=== PATIENT | male | born 1960 | race Caucasian/White ===

== ENCOUNTER 2020-01-21 08:32 | Inpatient (IN) | payer OTHER ==
--- NOTE | 2020-01-14 12:17 | RAD REPORT ---
EXAM DESCRIPTION: Fadumo Caceres (2 Views)01/14/2020 12:07 pm CLINICAL HISTORY: Preop for knee surgery COMPARISON: 2010 FINDINGS: The lungs appear clear of acute infiltrate. The heart is normal size IMPRESSION: No acute abnormalities displayed
[2020-01-14 12:58] LABS: Absolute Lymphocytes (CBC) 1.3 K/uL (0.7-4.9); Basophils % 0.6 % (0-1.3); Hematocrit 44.1 % (39.6-49.0); RBC Red Blood Cell Count 5.12 M/uL (4.33-5.43)
[2020-01-14 12:59] LABS: Protime INR 1.01
[2020-01-14 13:07] LABS: Potassium 4.1 mmol/L (3.5-5.1)
--- NOTE | 2020-01-14 16:28 | EKG ---
Test Date: 2020-01-14 Test Time: 10:44:21 Safety Sitter: NELLIE MEASUREMENT RESULTS: Intervals: Rate: 58 LA: 190 QRSD: 100 QT: 422 QTc: 414 [place]: P: 41 LA: 190 QRS: 5 T: 25 INTERPRETIVE STATEMENTS: Sinus bradycardia Otherwise normal ECG Compared to ECG 03/20/2011 12:53:34 Sinus rhythm no longer present Electronically Signed On 01-14-20 16:27:25 CDT by Ketan Melendez
[~2020-01-21 08:32] MED LIST: TRANEXAMIC ACID 1,000 MG in NA CHLORIDE 0.9% 50 ML IV SCH
[2020-01-21] MEDS ORDERED: CEFAZOLIN/SWI 2gm 2 GM/20 ML SYR ONE (08:56)
[2020-01-21] MEDS ORDERED: Ringers Lactate 1,000 ML IV ONE ×2 (08:56→12:06)
--- OUTSIDE RECORDS SUMMARY | 2020-01-21 09:24 | XMS REPORT ---
:1960 Author Organization eClinicalWorks Care Team Providers Name Role Phone Colt Enamorado Provider Role Unavailable Allergies No Known Allergies Problems Problem Type Condition Code Onset Dates Condition Statu s Problem Diverticulosis of large intestine K57.30 Active without perforation or abscess Problem Nonalcoholic fatty liver disease K76.0 Active Problem BPH without urinary obstruction N40.0 Active Problem Osteoarthritis of right knee, M17.11 Active unspecified osteoarthritis type Problem Adult BMI 38.0-38.9 kg/sq m Z68.38 Active Problem Primary osteoarthritis of right knee M17.11 Active Problem Hypersomnia G47.10 Active Problem Prediabetes R73.03 Active Problem Dependence on other enabling Z99.89 Active machines and devices Problem Obstructive sleep apnea (adult) G47.33 Active (pediatric) Problem Body mass index (BMI) of 36.0-36.9 Z68.36 Active in adult Problem Obesity, unspecified E66.9 Active Problem Benign essential hypertension I10 Active Problem Subclinical hypothyroidism E03.9 A ctive Problem Chronic back pain M54.9 Active Problem Gastroesophageal reflux disease K21.9 Active without esophagitis Problem Obstructive sleep apnea G47.33 Acti ve Medications Medication Code Code Instructions Start End Status Dosage System Date Date [facility] MG Orally Active 1 caps ule Once a day Aspirin 81 [facility] 48558660414 81 MG Orally Active 1 ta blet Once a day Losartan [facility] 43103676219 100 MG Orally Active 1 tab let Potassium Once a day Flomax [facility] 27880571060 0.4 Orally Once Active 1 ca psule a day Flomax [facility] 21751934887 0.4 MG Active TAKE ONE CAPSULE BY MOUTH DAILY Losartan [facility] 89259858753 50 MG Inactive TAKE TWO Potassium TABLETS BY MOUTH DAILY Results No Known Results Summary Purpose eClinicalWorks Submission
--- OUTSIDE RECORDS SUMMARY | 2020-01-21 09:24 | XMS REPORT ---
:1960 Author Organization eClinicalWorks Care Team Providers Name Role Phone [place] Michael Provider Role Unavailable Allergies No Known Allergies [...] Obstructive sleep apnea G47.33 Acti ve Medications No Known Medications Results No Known Results Summary Purpose Embedded ChatinicalWorks Submission
--- OUTSIDE RECORDS SUMMARY | 2020-01-21 09:24 | XMS REPORT ---
[...] Medications Results No Known Results Summary Purpose [employer]ylan [employer]Works Submission
--- OUTSIDE RECORDS SUMMARY | 2020-01-21 09:24 | XMS REPORT | Continuity of Care Document ---
:1960 Author Organization [facility] Address [address] [place] [id number] Care Team Providers Name Role Phone Unavailable Unavailable Unavailable Problems Condition Condition Condition Status Onset Resolution Last Treating Co mments Source Name Details Category Date Date Treatment Clinician Date Gastroesop Gastroesop Problem Active [facility] - reflux reflux Memoria disease disease l without without Outpati esophagiti esophagiti en t s s Clinics Benign Benign Problem Active [facility] essential essential Luke s - hypertensi hypertensi Me moria on on l [facility] Obesity, Obesity, Problem Active [facility] unspecifie unspecifie Rosa kes - d d Memoria l [facility] Prediabete Prediabete Problem Active [facility] - Memoria l [facility] Nonalcohol Nonalcohol Problem Active [facility] ic fatty ic fatty [facility] - liver liver Memoria disease disease l [facility]ics Hypersomni Hypersomni Problem Active [facility] a a [facility] - Memoria l [facility] Obstructiv Obstructiv Problem Active [facility] e sleep e sleep [facility] - apnea apnea Memoria l [facility]ics Chronic Chronic Problem Active [facility] back pain back pain Luke s - Memoria l [facility] BPH BPH Problem Active [facility] without without [facility] - urinary urinary Memoria obstructio obstructio l n n [facility] Diverticul Diverticul Problem Active [facility] osis of osis of [facility] - large large Memoria intestine intestine l without without Outpati perforatio perforatio en t n or n or Clinics abscess abscess Subclinica Subclinica Problem Active [facility] l l [facility] - hypothyroi hypothyroi Me moria dism dism l [facility] Clinics Body mass Body mass Problem Active [facility] index index [facility] - (BMI) of (BMI) of Memori a 36.0-36.9 36.0-36.9 l in adult in adult Outpat i ent Clinics Dependence Dependence Problem Active [facility] on other on other [facility] - enabling enabling Memori a machines machines l and and [facility] devices devices ent Clinics Adult BMI Adult BMI Problem Active [facility] 38.0-38.9 38.0-38.9 Luke s - kg/sq m kg/sq m Memoria l [facility] ent Clinics Primary Primary Problem Active [facility] osteoarthr osteoarthr Rosa kes - itis of itis of [facility] right knee right knee l [facility] Clinics Allergies, Adverse Reactions, Alerts This patient has no known allergies or adverse reactions. Medications Ordered Filled Start Stop Current Ordering Indication Dosage Frequency Signature Comments Components Source Medication Medication Date Date Medication? Clinician (SIG) Name Name Alcon Rondon Yes Michael [address] [facility] 6[facility] [place] as needed [facility] - 00:00: Memoria 00 [facility] ent Clinics Xarelto Xarelto Yes Michael [address] [facility] [place] [facility] - 00:00: Memoria 00 [facility] ent Clinics Prilosec Prilosec Yes Michael [address] [facility] [place] [facility] Losartan Losartan Yes Michael [address] Potassium Potassium [place] kes - [facility] ent [facility] Aspirin 81 Aspirin 81 Yes Michael [address] [facility] [place] [facility] - Memoria [facility] ent [facility] Flomax Flomax Yes Michael [address] [place] kes - [facility] ent Clinics Procedures This patient has no known procedures. Encounters Start End Encounter Admission Attending Care Care Encounter Source Date/Time Date/Time Type Type Clinicians Facility Department ID 2020-01-19 2020-01-19 Outpatient Steve Maldonado [id number] [facility] 14:02:00 14:02:00 t Bone Bone and [facility] - and Joint [facility] 2020-01-12 2020-01-12 Outpatient Steve Maldonado [id number] [address] 18:43:00 18:43:00 t [facility] and [facility] - and [facility] a [facility] 2020-01-08 2020-01-08 [facility] [id number] 09:00:00 09:00:00 t [facility] and [facility] - and [facility] 2019-12-31 2019-12-31 [facility] [id number] 10:34:00 10:34:00 t [facility] - and [facility] 2019-11-25 2019-11-25 [facility] [id number] 11:31:00 11:31:00 t Birthday Gorilla [facility] 2019-11-10 2019-11-10 [facility] [id number] 15:24:00 15:24:00 t [facility] and [facility] - and [facility] 2019-10-08 2019-10-08 [facility] [id number] 13:46:00 13:46:00 t [facility] - and [facility] 2019-10-03 2019-10-03 [facility] [id number] 11:07:00 11:07:00 t [facility] and [facility] - and [facility] 2019-10-02 2019-10-02 [facility] [id number] 15:14:00 15:14:00 t [facility] and [facility] - and [facility] 2019-10-02 2019-10-02 [facility] [id number] 08:17:00 08:17:00 [facility] 2019-10-01 2019-10-01 [facility] [id number] 06:22:00 06:22:00 t [facility] 2019-09-30 2019-09-30 [facility] [id number] 15:00:00 15:00:00 t Birthday Gorilla [facility] 2019-09-17 2019-09-17 [facility] [id number] 15:35:00 15:35:00 t [facility] and [facility] - and [facility] Clinics 2019-09-02 2019-09-02 [facility] [id number] 15:00:00 15:00:00 t [facility] - [facility] ent Clinics 2019-08-14 2019-08-14 [facility] [id number] 16:00:00 16:00:00 t Anderson Andel [facility] 2019-06-30 2019-06-30 [facility] [id number] 16:30:00 16:30:00 t Anderson Andel [facility] 2019-02-24 2019-02-24 [facility] [id number] 11:45:00 11:45:00 t Anderson Andel [facility] 2019-02-06 2019-02-06 [facility] [id number] 09:06:00 09:06:[address] [place] [employer] [address] [facility] ent Clinics 2018-12-11 2018-12-11 [facility] [id number] 14:30:00 14:30:00 t Bone [facility] and [facility] - and [facility] Clin[facility] 2018-12-05 2018-12-05 [facility] [id number] 15:30:00 15:30:00 t [facility] - [facility] ent Clinics 2018-11-28 2018-11-28 [facility] [id number] 15:00:00 15:00:00 t [facility] - [facility] ent Clinics 2018-10-28 2018-10-28 [facility] [id number] 11:00:00 11:00:00 t Bone [facility] and [facility] - [facility] ent Clinics 2018-10-23 2018-10-23 [facility] [id number] 14:04:00 14:04:00 t Anderson Bluen[facility] Medicine Outpati ent Clinics 2018-10-08 2018-10-08 [facility] [id number] [facility] 15:45:00 15:45:00 t Anderson [facility] Medicine Outpati ent Clinics 2018-09-30 2018-09-30 [facility] [id number] 10:00:00 10:00:00 t Anderson [facility] Medicine Outpati ent Clinics 2018-03-08 2018-03-08 [facility] [id number] 09:21:00 09:21:00 t Anderson Bluen[facility] Medicine Outpati ent Clinics 2018-02-25 2018-02-25 [facility] [id number] 16:00:00 16:00:00 t IdenIve s - [facility] Medicine Outpati ent Clinics 2018-01-16 2018-01-16 [facility] [id number] 16:00:00 16:00:00 t IdenIve s [employer] [facility] Medicine Outpati ent Clinics Results This patient has no known results.
--- OUTSIDE RECORDS SUMMARY | 2020-01-21 09:25 | XMS REPORT ---
:1960 [facility] Team Providers Name Role Phone [place] Provider Role Unavailable Allergies, Adverse Reactions, Alerts Substance Reaction Event Type N.K.D.A. 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 Active machines and devices Problem Obstructive sleep apnea (adult) G47.33 Active (pediatric) Problem Body mass index (BMI) of 36.0-36.9 Z68.36 Active in adult Assessment Acute pain of right knee M25.561 Act tuan Assessment Primary osteoarthritis of right M17.11 Active knee Problem Obesity, unspecified E66.9 Active Problem Benign essential hypertension I10 Active Problem Subclinical hypothyroidism E03.9 A ctive Problem Chronic back pain M54.9 Active Problem Gastroesophageal reflux disease K21.9 Active without esophagitis Problem Obstructive sleep apnea G47.33 Acti ve Medications Medication Code Code Instructions Start End Status Dosage System Date Date Aspirin 81 [facility] 78894041546 81 MG Orally Active 1 ta blet Once a day Losartan [facility] 88704556682 100 MG Orally Active 1 tab let Potassium Once a day [place] [facility] 81775365498 7.5-325 MG January 13, Active 1 tablet Orally every 6 2019 as needed hrs Xarelto [facility] 56484825606 10 MG Orally January 13, Active 1 tabl et Once a day 2019 Prilosec [facility] 31500001409 20 MG Orally Active 1 caps ule Once a day Flomax [facility] 62686022752 0.4 Orally Once Active 1 ca psule a day Results No Known Results Summary Purpose eClinicalWorks Submission
--- OUTSIDE RECORDS SUMMARY | 2020-01-21 09:25 | XMS REPORT ---
[...] Medications Results No Known Results Summary Purpose mLEDinicalWorks Submission
--- OUTSIDE RECORDS SUMMARY | 2020-01-21 09:25 | XMS REPORT ---
[...] Medications Results No Known Results Summary Purpose [email or web address]com[employer]Works Submission
[2020-01-21] MEDS ORDERED: MIDAZOLAM HCL 2 MG/2 ML INJ ONE (09:48)
[2020-01-21] MEDS ORDERED: FENTANYL CITR 250 MCG/5 ML ONE (09:48)
[2020-01-21] MEDS ORDERED: BUPIVACA 0.5%/EPI 0.0005%/PF 30 ML VIAL ONE (10:09)
[2020-01-21] MEDS ORDERED: dexAMETHasone 10 MG/ML VIAL ONE ×2 (10:13→11:43)
[2020-01-21] MEDS ORDERED: BUPIVACAINE 0.25% PF 10 ML VIAL ONE (10:14)
[2020-01-21] MEDS ORDERED: propofoL 200 MG/20 ML VIAL IV ONE (10:45)
[2020-01-21] MEDS ORDERED: LIDOCAINE 1% MPF 5 ML VIAL ONE (10:46)
[2020-01-21] MEDS ORDERED: HYDROMORPHONE HCL 1 MG/ML INJ ONE (10:46)
[2020-01-21] MEDS ORDERED: ROCURONIUM 50 MG/5 ML VIAL IV ONE (10:47)
[2020-01-21] MEDS ORDERED: KETAMINE HCL 500 MG/5 ML VIAL ONE (11:06)
[2020-01-21] MEDS ORDERED: EPHEDRINE SULF 50 MG/ML VIAL ONE (11:14)
[2020-01-21] MEDS ORDERED: KETOROLAC 30 MG/ML INJ ONE (11:43)
[2020-01-21] MEDS ORDERED: ONDANSETRON 4 MG/2 ML VIAL ONE (11:48)
[2020-01-21] MEDS ORDERED: DOCUSATE NA 100 MG CAP PO PRN (13:33)
[2020-01-21] MEDS ORDERED: ONDANSETRON 4 MG/2 ML VIAL IV PRN (13:33)
[2020-01-21] MEDS ORDERED: MORPHINE 2 MG/ML SYR IV PRN (13:33)
--- NOTE | 2020-01-21 13:33 | P.BOP ---
Preoperative diagnosis: right knee osteoarthritis Postoperative diagnosis: same Primary procedure: right total knee arthroplasty Learning Analyst: NONE,NONE Estimated blood loss: per anesthesia record Specimen: right knee bone remnants Findings: see dictation Anesthesia: General Complications: None Implants: Carline Persona 11 CR Femur, G tibia, 10 CR poly, 35 patella Fluids & blood products: per anesthesia record; TT: 87 mins @ 300 mmHg Transferred to: Recovery Room Condition: Good
[2020-01-21] MEDS ORDERED: TRAMADOL HCL 50 MG TAB PO PRN (13:36)
[2020-01-21] MEDS: HYDROMORPHONE HCL 2 MG/ML inj ONE ×4 (13:41→13:56)
[2020-01-21 13:56] LABS: Hematocrit 42.9 % (39.6-49.0)
[2020-01-21] MEDS: MEPERIDINE HCL 50 MG/ML ONE ×2 (13:59→14:04)
--- NOTE | 2020-01-21 14:04 | RAD REPORT ---
EXAM DESCRIPTION: RAD - Knee Right 2 View - 01/21/2020 1:57 pm CLINICAL HISTORY: Post Op Total knee arthroplasty COMPARISON: No comparisons FINDINGS: Right total knee arthroplasty is noted. No hardware complication is seen. Air is present i n the joint space with skin german noted. IMPRESSION: Status post right TKA.
[2020-01-21] MEDS: TAMSULOSIN 0.4 MG SR CAP PO SCH (14:47)
[2020-01-21] MEDS: CEFAZOLIN/SWI 2gm 2 GM/20 ML SYR IV SCH (17:00)
[2020-01-21] MEDS: HYDROCODONE/APAP 7.5/325 MG TAB PO PRN (18:30)
[2020-01-21 19:27] VITALS: BMI 33.0
--- NOTE | 2020-01-21 19:49 | P.OP ---
Preoperative diagnosis: right knee osteoarthritis Postoperative diagnosis: same Primary procedure: right total knee arthroplasty Anesthesia: general Estimated blood loss: 20 cc Specimen: right knee bone remnants Findings: see dictation Operative Technique: Indication For Procedure: Moisés is a 59-year-old male who presented to my clinic with signs, symptoms, and x-ray finding consistent with severe degenerative osteoarthritis. The patient failed conservative treatment measures including corticosteroid injection, viscosupplementation injections, oral anti-inflammatories, and a guided home exercise program. I discussed with the patient at length risks, benefits associated with operative and nonoperative treatment, and he expressed understanding and elected to proceed with operative treatment. Description Of Procedure: After informed consent was obtained, the patient was identified in the preoperative holding area. The right lower extremity was marked. The patient underwent an adductor canal nerve block performed by Anesthesia in the recovery room and then was transferred to the operating room. He was transferred to the operating table in supine fashion and placed under general anesthesia. The right lower extremity was then prepped and draped in usual sterile fashion. A time-out was initiated. Correct patient and procedure were confirmed and identified. The patient did receive his preoperative prophylactic antibiotics. The right lower extremity was exsanguinated and the tourniquet inflated to 300 mmHg. Approximately a 15 cm longitudinal incision was made over the anterior aspect of the knee. Dissection was then taken down to the extensor mechanism where a median parapatellar arthrotomy was performed. The patella was dislocated and inverted. Lateral release was performed. Osteophytes were then removed off the patella. Fat pad was removed and the knee was placed in flexion. The medial meniscus, lateral meniscus, and ACL were r emoved. The fat pad and synovium were removed just proximal to the distal femur and cutting block which had been prepared preoperatively using MRI imaging was then placed over the femur and pins were placed. The distal femoral cutting block was then placed over the pins and distal femur was cut. Bony remnants were removed. Next, a chamfer cutting block was placed over the distal femur where prior pin in place. The setting was locked into position. Anterior- posterior cuts were made as well as the anterior-posterior chamfer cuts. Rudy wings had been used to ensure proper depth to cuts prior to the cuts being made. Bony remnants were removed. Remaining medial and lateral meniscus were removed and the knee was placed in hyperflexion. Soft tissue was then elevated off the proximal medial aspect of the proximal tibia. The tibial cutting block was then placed into position over the proximal tibia and an alignment erich was used to ensure proper alignment. Pins were placed. The cutting jig was then placed over the prior plate pins and the proximal tibial was cut. The bony fragments were then removed and felt to be a pretty even and stable cut. A 10 mm spacer was then placed to ensure proper depth of the cut. The trial implant including a size 11 CR femur, G tibial tray, 10 mm poly was then placed. There was good overall stability to the knee and good range of motion with full extension and flexion. Those implants were selected. Next, attention was taken to preparing the patella. A size 35 patella was selected. A patella cutting jig was then used to make appropriate cut to subchondral bone. The patella was drilled. A size 35 patella implant was placed. The knee was place in a range of motion. There was good overall stability to the patella. Tibial tray was marked, and the femoral holes were drilled. A trial femoral implant was removed. A tibial tray was then applied and placed in a proper position, and the tibia was prepared. The knee was then irrigated thoroughly with normal saline using a pulse lavage. A 30 cc of 0.5% Marcaine with epi was then injected in the synovium capsule and periosteum. The cement was prepared on the back table. A size G tibial tray was first placed, followed with excess cement removed using Rexford elevators, followed by placement of the size 11 CR femur. Again excess cement was removed using a [place] elevator and a 10 mm trial poly was placed. There were good motion and good stability noted. The cement was placed in the underside of the patella and the patella implant was put into position. The knee was held in hyperextension until the cement hardened. The trial poly was then removed and a 10 mm CR poly was placed, locked in position. The knee was then again irrigated with normal saline. Tourniquet was let down. Hemostasis was achieved using Bovie cautery. The extensor mechanism was closed interrupted running #1 Vicryl. The deep fascia was then approximated using a 0 Vicryl. Subcu tissue was approximated using a 2-0 Vicryl. The skin was approximated using a 3-0 nylon. Sterile dressings were placed. The patient was awakened, transferred to PACU in stable condition. Postoperative Plan: He will be weightbearing as tolerated. Physical Therapy will be consulted to aid with mobilization, and he will be admitted to the floor for pain management and medical monitoring. Complications: None Implants: Carline Persona 11 CR femur, G tibia, 10 mm CR poly, 35 patella Fluids & blood products: per anesthesia record; TT: 87 mins @ 300 mmHg Transferred to: Recovery Room Condition: Good
[2020-01-22] MEDS: CEFAZOLIN/SWI 2gm 2 GM/20 ML SYR IV SCH ×2 (00:03→08:36)
[2020-01-22] MEDS: HYDROCODONE/APAP 7.5/325 MG TAB PO PRN ×3 (00:04→19:59)
[2020-01-22 04:46] LABS: Absolute Lymphocytes (CBC) 0.7 K/uL (0.7-4.9); Basophils % 0.1 % (0-1.3); Lymphocytes % 5.1 % (15.3-44.8); MPV 8.8 fL (7.6-11.3); RBC Red Blood Cell Count 4.43 M/uL (4.33-5.43)
[2020-01-22 04:56] LABS: Potassium 3.9 mmol/L (3.5-5.1)
[2020-01-22 05:21] LABS: Blood Morphology Comment NOT SEEN (NOT SEEN); Platelet Estimate ADEQ
[2020-01-22] MEDS: ENOXAPARIN 30 MG/0.3 ML SQ SCH ×2 (06:45→17:01)
[2020-01-22] MEDS: CELECOXIB 100 MG CAPSULE PO SCH (08:37)
[2020-01-22] MEDS: TAMSULOSIN 0.4 MG SR CAP PO SCH (08:37)
[2020-01-22] MEDS: LOSARTAN POTASSIUM 50 MG TABLET PO SCH (08:37)
--- NOTE | 2020-01-22 14:06 | P.PN ---
Subjective Date of Service: 01/22/20 Chief Complaint: s/p right TKA Subjective: Working w/ PT pain controlled; ambulating well with PT Physical Examination - Vital Signs Temperature: 97 F Blood Pressure: 120/62 Pulse: 70 Respirations: 18 Pulse Ox (%): 95 - Physical Exam General: Alert, In no apparent distress Musculoskeletal: Other (RLE: dressing c/d/i; +EHL/FHL/GSC/TA; sensation grossly intact distally) - Studies Laboratory Data (last 24 hrs) 01/22/20 04:21: Sodium 138, Potassium 3.9, BUN 20 H, Creatinine 1.02, Glucose 159 H 01/22/20 04:21: WBC 14.3 H D, Hgb 12.7 L, Hct 38.0 L, Plt Count 189 Assessment And Plan - Plan Moisés is a 59 yo male s/p right TKA POD#1 -continue working with PT; WBAT -lovenox for DVT prophylaxis -likely d/c in AM
[2020-01-23 01:34] VITALS: O2SAT 97
[2020-01-23] MEDS: HYDROCODONE/APAP 7.5/325 MG TAB PO PRN ×2 (04:28→09:27)
[2020-01-23] MEDS: ENOXAPARIN 30 MG/0.3 ML SQ SCH (05:16)
[2020-01-23 08:12] VITALS: BP 118/63; TEMP 97.1
[2020-01-23] MEDS: LOSARTAN POTASSIUM 50 MG TABLET PO SCH (08:29)
[2020-01-23] MEDS: TAMSULOSIN 0.4 MG SR CAP PO SCH (08:30)
[2020-01-23] MEDS: CELECOXIB 100 MG CAPSULE PO SCH (08:30)
--- NOTE | 2020-01-23 10:46 | P.DS ---
Admission Date: 01/21/20 Discharge Date: 01/23/20 Disposition: DC HOME/HOME HEALTH CARE Discharge Condition: GOOD Reason for Admission: s/p right TKA Procedures: right total knee arthroplasty on 01/21/2020 Brief History of Present Illness: Moisés is a 59 yo male admitted to the floor postoperatively from right total knee arthroplasty Hospital Course: Moisés was admitted postoperatively in stable condition to the floor. Physical therapy was consulted to aid with mobilization and he ambulated safely prior to discharge. He was placed on lovenox for DVT prophylaxis during hospitalization and discharged with Xarelto. He was discharged in stable condition on 01/23/2020. Vital Signs/Physical Exam: Temp Pulse Resp BP Pulse Ox 97.1 F 68 19 118/63 96 01/23/20 08:00 01/23/20 08:00 01/23/20 10:21 01/23/20 08:00 01/23/20 10:21 Laboratory Data at Discharge: WBC 14.3 K/uL (4.3-10.9) H D 01/22/20 04:21 Hgb 12.7 g/dL (13.6-17.9) L 01/22/20 04:21 Hct 38.0 % (39.6-49.0) L 01/22/20 04:21 Plt Count 189 K/uL (152-406) 01/22/20 04:21 PT 11.9 SECONDS (9.5-12.5) 01/14/20 12:00 INR 1.01 01/14/20 12:00 APTT 35.2 SECONDS (24.3-36.9) 01/14/20 12:00 Sodium 138 mmol/L (136-145) 01/22/20 04:21 Potassium 3.9 mmol/L (3.5-5.1) 01/22/20 04:21 BUN 20 mg/dL (7-18) H 01/22/20 04:21 Creatinine 1.02 mg/dL (0.55-1.3) 01/22/20 04:21 Glucose 159 mg/dL (74-106) H 01/22/20 04:21 Home Medications: Losartan Potassium [Cozaar] 100 mg PO DAILY 01/14/20 Tamsulosin [Flomax*] 0.8 mg PO DAILY 01/14/20 Hydrocodone 7.5/APAP 325 [[place] 7.5/325 mg*] 1 tab PO Q4H PRN tab 01/23/20 Patient Discharge Instructions: keep dressing clean and dry; begin Xarelto tomorrow 01/23 in AM and take once daily Diet: Regular Activity: Weight bearing as tolerated Followup: Michael Birmingham MD [ACTIVE - CAN ADMIT] - 1-2 Weeks (Call to make an appointment. )
== END 2020-01-23 10:21 | disposition home health service (06) | DRG 470 ==
LOC: OR 08:32 → 2ND 14:18
PROVIDERS: ADMIT Orthopaedic Surgery Sports Medicine; ATTEND Orthopaedic Surgery Sports Medicine
PROC: 0SRC0J9 Replacement of Right Knee Joint with Synthetic Substitute, Cemented, Open Approach (ICD-10-PCS; principal; 2020-01-21 10:30)
DX: M17.11 Unilateral primary osteoarthritis, right knee (principal); K21.9 Gastro-esophageal reflux disease without esophagitis; Z79.899 Other long term (current) drug therapy; Z79.891 Long term (current) use of opiate analgesic; Z79.82 Long term (current) use of aspirin; Z90.49 Acquired absence of other specified parts of digestive tract
CPT/HCPCS: 36415; 71046; 80048; 85014; 85018; 85025; 85610; 85730; 88304; 88305; 88311; 93005; 97110; 97116; 97139; 97161; 97530; J0690; J1100; J1170; J1650; J2175; J2250; J2405; J2704; J3010; J7120